=== PATIENT | male | born 1940 | race Caucasian/White ===

== ENCOUNTER 2024-04-18 14:16 | Outpatient (AMB) | payer MEDICARE, SELFPAY ==
--- NOTE | 2024-04-18 14:41 | MHC.PC.OV ---
Vital Signs 04/18/24 14:44 Height 5 ft 6 in Weight 176 lb BMI 28.4 BP 110/72 Blood Pressure Location Lt brachial Position Sitting Intake Visit Reasons: establish care Catheter Builder Required: No Accompanied by: Son Allergies No Known Allergies Allergy (Verified 04/18/24 15:05) Medication List - Last Reconciled 04/18/24 by Gregory Helms PA-C amlodipine 5 mg PO DAILY cetirizine (All Day Allergy (cetirizine)) 10 mg PO DAILY PRN lisinopril-hydrochlorothiazide 20-12.5 mg 1 tab PO DAILY nabumetone 500 mg PO BID pravastatin 80 mg PO BEDTIME Tobacco use date assessed: 04/18/24 Fall risk assessment: 1 Fall in past year Last assessed Fall Risk: 04/18/24 Dental Screening Dental Screen Date: 04/18/24 Did you have a dental visit in the last 12 months?: No Did you have a dental problem in the last 6 months where you did not have access to dental care?: No Was dental information given to patient?: Patient declined HPI establish care HPI Details Patient is an 83-year-old male here today for new patient visit. Patient has a past medical history significant for hypertension, hyperlipidemia. Previous PCP was at the [facility]. .. Concern--> he reports last 20 years having bilateral foot numbness. This has never been investigated. He does report walking on every day basis and reports at times his legs feel very heavy. Hyperlipidemia: Patient continues on statin therapy. Will continue to fasting lipid panel with goal LDL to be below 130 ... Hypertension: Blood pressure acceptable today in office. He continues with the use of lisinopril hydrochlorothiazide and amlodipine 5 mg. [facility] Surgical History No pertinent past surgical history Social History Housing: Apartment Alcohol intake: current Alcohol intake frequency: holidays/special occasions only Alcohol type: other Patient Tobacco Use Status: Never used Tobacco e-Cigarette/Vaping Use: Never Used Second Hand Smoke Exposure: No service: No Current occupational status: retired Cognitive needs: No Hearing needs: No Vision needs: Yes Questionnaire PHQ-9 Over the last 2 weeks, how often have you been bothered by any of the following problems? 1. Little interest or pleasure in doing things: not at all 2. Feeling down, depressed, or hopeless: not at all 3. Trouble falling or staying asleep, or sleeping too much: several days 4. Feeling tired or having little energy: several days 5. Poor appetite or overeating: not at all 6. Feeling bad about yourself - or that you are a failure or have let yourself or your family down: not at all 7. Trouble concentrating on things, such as reading the newspaper or watching television: not at all 8. Moving or speaking so slowly that other people could have noticed. Or the opposite - being so fidgety or restless that you have been moving around a lot more than usual: several days 9. Thoughts that you would be better off or of hurting yourself in some way: not at all Total score: 3 Depression Screening Interpretation: Negative Depression Screening Done: Yes 62722 - PHQ-9 Billing: Yes Source: Developed by Drs. Mamadou Adam, Agnes Devine, Antonino Soares and colleagues, with an educational yeni from [employer]. Thrive Questionnaire Date Thrive assessed: 04/18/24 I am a: Patient What is your living situation today?: I have a steady place to live Within the past 12 months, did the food you bought not last and you didn't have the money to get more?: Never true Within the past 12 months, did you worry whether your food would run out before you got money to buy more?: Never true Do you have trouble paying for medicines?: No Do you have trouble getting transportation to medical appointments?: No Do you have trouble paying your heating and electricity bill?: No Do you have trouble taking care of your child, family member or friend?: No Do you have trouble with day-to-day activities such as bathing, preparing meals, shopping, managing finances, etc.?: No Are you currently unemployed and looking for a job?: No Are you interested in more education?: No Please select the resources that you would like help with: None Currently or been in a relationship where the following occur: No concerns reported THRIVE Score: 0 AUDIT C Alcohol Use Questionnaire (AUDIT-C) 1. How often do you have a drink containing alcohol?: 2-3 times a week 2. How many drinks containing alcohol do you have on a typical day when you are drinking?: 1 or 2 3. How often do you have six or more drinks on one occasion?: Never Total Score: 3 EBONY-7 AMB Questionnaire EBONY-7 Date EBONY - 7 assessed: 04/18/24 Feeling nervous, anxious, or on edge: 0 = Not at all Not being able to stop or control worryin = Not at all Worrying too much about different things: 0 = Not at all Trouble relaxin = Not at all Being so restless that it is hard to sit still: 0 = Not at all Becoming easily annoyed or irritable: 0 = Not at all Feeling afraid as if something awful might happen: 0 = Not at all Total EBONY-7 score (0-4 normal; 5-9 mild; 10-14 moderate; 15-21 severe): 0 Source: Developed by Drs. Mamadou Adam, Agnes Devine, Antonino Soares and colleagues, with an educational yeni from [employer]. EBONY-7 Assessment Billing EBONY-7 Assessment Tool: EBONY-7 Assessment 90227 Review of Systems Const Denies headache(s) Eyes Denies loss of vision ENT Denies vertigo, Denies dizziness, Denies headache(s) and Denies sore throat Card Denies chest pain, Denies leg edema and Denies lightheadedness Resp Denies cough, Denies hemoptysis and Denies wheezing GI Denies abdominal pain, Denies melena, Denies constipation, Denies diarrhea and Denies vomiting Denies dysuria, Denies urinary frequency and Denies urinary urgency Musc Denies arthralgias, Denies joint swelling, Denies numbness and Denies tingling Neuro Denies Abnormal speech present, Denies behavioral changes, Denies vertigo, Denies dizziness, Denies headache(s), Denies loss of vision, Denies memory loss, Denies numbness and Denies tingling Psych Denies anxiety, Denies behavioral changes, Denies depression, Denies memory loss and Denies panic attacks Markell/Lymph Denies easy bleeding and Denies easy bruising Aller/Immun Denies wheezing Physical exam (Primary Care) Vital Signs: Last Vital Signs BP 110/72 04/18/24 14:44 BMI result Body Mass Index 28.4 Tobacco/Smoking Status: Tobacco use Status Tobacco use date assessed 04/18/24 04/18/24 14:52 Patient Tobacco Use Status Never used Tobacco 04/18/24 14:52 e-Cigarette/Vaping Use Never Used 04/18/24 14:52 PHQ-9: PHQ-9 Score PHQ-9: Total score 3 04/18/24 15:05 Depression Screening Interpretation: Negative Thrive Assessment: Date of Thrive Assessment Date Thrive assessed 04/18/24 04/18/24 14:43 Currently or been in a relationship where the following occur: No concerns reported Const General: healthy appearing, no acute distress, alert and awake Nutritional Appearance: well nourished Orientation/consciousness: oriented to person, oriented to place and oriented to time HENMT Ears: TM's normal bilaterally General nose exam: Normal nasal mucous membranes and turbinates present Eyes Conjunctivae: conjunctivae normal Sclerae: sclerae normal Pupils: Equal, round and reactive pupils present Neck Neck: Yes no lymphadenopathy and Yes no JVD Thyroid: Thyroid normal Carotids: no bruits Resp Effort & Inspection: normal respiratory effort and not tachypneic Auscultation: no crackles, no rales, no rhonchi and no wheezes Cardio Rate: regular rate Rhythm: regular rhythm Heart sounds: no murmurs and normal S1 and S2 GI Palpation (GI): Soft to palpation, nontender, no hepatomegaly and no splenomegaly Auscultation: normal bowel sounds Skin General skin exam: no rashes or lesions noted and dry skin Neuro General: oriented to person, oriented to place and oriented to time Cranial nerves: Yes Equal, round and reactive pupils present Speech: No Abnormal speech present Gait exam (Neuro): Normal gait present Motor exam (neuro): no tremor noted Extrem Right upper extremity: full ROM Left upper extremity: full ROM Right lower extremity: full ROM; no edema Left lower extremity: full ROM; no edema Psych Mental Status: mental status grossly normal Speech and movement: Normal speech and movement present Affect: normal affect Attitude: cooperative Thought process: Normal thought process present Coding Level of Care Code New Pt Level 4 (11214) Diagnoses Primary hypertension I10 Hypertension type: primary hypertension Mixed hyperlipidemia E78.2 Hyperlipidemia type: mixed hyperlipidemia Bilateral leg paresthesia R20.2 Additional Codes PHQ-9 - 53503 - PHQ-9 Billing: Yes ([id number]) EBONY-7 Assessment Billing - EBONY-7 Assessment Tool: EBONY-7 Assessment 77784 ([id number]) Assessment & Plan Assessment & Plan (1) HTN (hypertension): Code(s): I10 - Essential (primary) hypertension Category: Medical Qualifiers: Hypertension type: primary hypertension Qualified Code(s): I10 - Essential (primary) hypertension Plan: Patient's blood pressure acceptable today in office. Will continue his current dose of antihypertensive medication with goal blood pressure to remain below 140/90 (2) HLD (hyperlipidemia): Code(s): E78.5 - Hyperlipidemia, unspecified Category: Medical Qualifiers: Hyperlipidemia type: mixed hyperlipidemia Qualified Code(s): E78.2 - Mixed hyperlipidemia Plan: Patient continues on pravastatin 80 mg. Will continue follow the fasting lipid panel. Goal LDL to be below 130 (3) Bilateral leg paresthesia: Code(s): R20.2 - Paresthesia of skin Category: Medical Plan: Patient reporting bilateral foot numbness and paresthesias. Also does have some exertional symptoms of heaviness in his legs. Will start with the EMG testing to evaluate for neuropathy. Orders: Orders Lipid Panel 04/18/24 E78.5 - Hyperlipidemia, unspecified Prostate Specific Antigen Scr 04/18/24 I10 - Essential (primary) hypertension, Z12.5 - Encounter for screening for malignant neoplasm of prostate NE electromyogram (EMG) 04/18/24 R20.2 - Paresthesia of skin Complete Blood Count no Diff 04/18/24 I10 - Essential (primary) hypertension Comprehensive [place]. Panel Fast 04/18/24 I10 - Essential (primary) hypertension Microalbumin, Random (w Creat) 04/18/24 I10 - Essential (primary) hypertension
[2024-04-18 14:44] VITALS: BP 110/72; BMI 28.4
--- OUTSIDE RECORDS SUMMARY | 2024-04-18 16:18 | XMS_ITS | Clinical Summary ---
Author Organization [facility] [place] Address [address] [place] [address] Care Team Providers Care Human Capital Consultant Name Role Phone Grzegorz Javier MD Primary Care Provider [phone] Medical History Medical History Date Comments Reflux esophagitis DX:Reflux eso phagitis Hyperlipidemia DX:Hyperlipidemi a Hypertension DX:Hypertension Pill esophagitis DX:Pill esophag itis Family History Medical History Relation Name Comments Alzheimer's disease Brother Colon cancer Father Heart attack Mother Alzheimer's disease Sister Relation Name Status Comments Brother Father Mother Sister Social History Tobacco Use Types Packs/Day Years Used Date Smoking Tobacco: Never Smokeless Tobacco: Never Alcohol Use Standard Drinks/Week Comments Yes 0 (1 standard drink = 0.6 oz pur e alcohol) Sex and Gender Information Value Date Recorded Sex Assigned at Not on file Legal Sex Male 4:09 PM EST Gender Identity Not on file Sexual Orientation Not on file Obstetrics History Last Filed Vital Signs Vital Sign Reading Time Taken Comments Blood Pressure 116/64 04/24/2023 2:18 PM EDT Pulse 63 04/24/2023 2:18 PM EDT Temperature - - Respiratory Rate - - Oxygen Saturation - - Inhaled Oxygen Concentration - - Weight 82.7 kg (182 lb 4.8 oz) 04/24/2023 2:18 P M EDT Height 174 cm (5' 8.5 ) 04/24/2023 2:18 PM EDT Body Mass Index 27.32 04/24/2023 2:18 PM EDT Plan of Treatment Health Maintenance Due Date Last Done Comments DTaP,Tdap,and Td Vaccines (1 - Tdap) 1957 Pneumococcal Vaccine: 50+ Ye ars (1 of 1 - PCV) 1988 Zoster Vaccines (1 of 2) 1988 RSV Immunization Patients 60 + Years Old (1 - 1-dose 75+ series) 2013 Cholesterol Screening (Lipid Panel) 01/08/2022 Depression Screening 01/08/2022 Falls Risk Assessment 01/08/2022 Social Influencers of Health Screening 01/08/2022 Hypertension/CHF/CAD Annual BMP Blood Test 01/23/2022 COVID-19 Vaccine ( - 2023-2 5 season) 2023 Influenza Vaccine (#1) 2023 HIB Vaccines Aged Out No longer eligi ble based on patient's age to complete this topic HPV Vaccines Aged Out No longer eligi ble based on patient's age to complete this topic Hepatitis A Vaccines Aged Out No long er eligible based on patient's age to complete this topic Hepatitis B Vaccines Aged Out No long er eligible based on patient's age to complete this topic IPV Vaccines Aged Out No longer eligi ble based on patient's age to complete this topic MMR Vaccines Aged Out No longer eligi ble based on patient's age to complete this topic Meningococcal ACWY Vaccine Aged Out N o longer eligible based on patient's age to complete this topic Meningococcal B Vacine Aged Out No lo nger eligible based on patient's age to complete this topic RSV Immunization Patients Un hammad 20 months Aged Out No longer eligible b ased on patient's age to complete this topic Varicella Vaccines Aged Out No longer eligible based on patient's age to complete this topic Advance Directives Documents on File Type Date Recorded Patient Bulk Sausage Casing Tier Off Expl anation Health Care Decision (hx) 04/28/2018 AD CODY DIRECTIVE Health Care Decision (hx) 04/28/2018 AD CODY DIRECTIVE Care Teams Human Capital Consultant Relationship Specialty Start Date End Date Grzegorz Javier MD [address] [place] [phone] PCP - General 01/18/15
== END 2024-04-18 15:29 | disposition home or self-care (01) ==
PROVIDERS: PCP Physician Assistant; Visit Provider Physician Assistant
DX: I10 Essential (primary) hypertension (principal); E78.2 Mixed hyperlipidemia; R20.2 Paresthesia of skin

== ENCOUNTER → 2024-04-18 14:16 | Outpatient (BNVA) | payer MEDICARE, SELFPAY | PROVIDERS: PCP Physician Assistant; Visit Provider Physician Assistant | DX: I10 Essential (primary) hypertension (principal); E78.2 Mixed hyperlipidemia; R20.2 Paresthesia of skin | CPT/HCPCS: 96127; 99202 ==

== ENCOUNTER 2024-06-10 09:57 | Outpatient (REF) | payer MEDICARE, SELFPAY ==
[2024-06-10 10:59] LABS: Hematocrit 38.6 % (42.0-52.0); Hemoglobin 13.2 g/dl (14.0-18.0); Mean Corpuscular HGB Conc 34.2 g/dl (31.0-36.0); Mean Corpuscular Hemoglobin 30.3 pg (27.0-33.0); Mean Corpuscular Volume 88.5 fL (80.0-98.0); Platelet Count 161 X10*3/uL (160-400); Red Blood Count 4.36 X10*6/uL (4.60-5.80); Red Cell Distribution Width 12.8 % (11.0-16.0); White Blood Count 6.7 X10*3/uL (4.8-10.8)
--- OUTSIDE RECORDS SUMMARY | 2024-06-10 11:01 | XMS_ITS | Clinical Summary ---
Author Organization [facility] Address [address] [place] [address] Care Team Providers Care Sharepoint Consultant Name Role Phone Grzegorz Javier MD Primary Care Provider [phone] Medical History Medical History Date Comments Reflux [...] Vaccines (1 of 2) 1988 RSV Immunization Adult Patie nts (1 - 1-dose 75+ series) 2013 Cholesterol Screening (Lipid Panel) 01/08/2022 Depression Screening 01/08/2022 Falls Risk Assessment 01/08/2022 Social Influencers of Health Screening 01/08/2022 Hypertension/CHF/CAD Annual BMP Blood Test 01/23/2022 COVID-19 Vaccine ( - 2023-2 5 season) 2023 Influenza Vaccine (Season Ended) 2024 HIB Vaccines Aged Out No longer eligi [...] age to complete this topic Meningococcal B Vaccine Aged Out No l onger eligible based on patient's age to complete this topic RSV Immunization Patients Un hammad 20 months Aged Out No longer eligible b ased on patient's age to complete this topic Varicella Vaccines Aged Out No longer eligible based on patient's age to complete this topic Advance Directives Documents on File Type Date Recorded Patient Youth Counselor Expl anation Health Care Decision (hx) 04/28/2018 AD CODY DIRECTIVE Health Care Decision (hx) 04/28/2018 AD CODY DIRECTIVE Care Teams Sharepoint Consultant Relationship Specialty Start Date End Date Grzegorz Javier MD [address] [phone] PCP - General 01/18/15
[2024-06-10 11:54] LABS: Prostate Specific Antigen Scr 0.26 ng/mL (<0.05-4.0)
[2024-06-10 12:03] LABS: Alanine Aminotransferase 11 U/L (0-40); Albumin Level 3.9 g/dL (3.5-5.0); Alkaline Phosphatase 41 U/L (39-117); Anion Gap 13 (12-20); Aspartate Amino Transferase 14 U/L (5-37); Bilirubin Total 0.5 mg/dL (0.0-1.0); Blood Urea Nitrogen 24 mg/dL (9-16); Calcium 9.3 mg/dL (8.4-10.2); Carbon Dioxide 26 mmol/L (22-29); Chloride 109 mmol/L (96-108); Cholesterol 114 mg/dL (<200); Estimated Glomerular Filt Rate > 60; Glucose Fasting 104 mg/dL (60-99); HDL Cholesterol 44 mg/dL (>40); LDL Cholesterol Calculated 46 mg/dL (<100); Potassium 3.8 mmol/L (3.3-5.1); Sodium 144 mmol/L (135-145); Total Protein 6.4 g/dL (6.5-8.0); Triglycerides 120 mg/dL (<150)
[2024-06-10 12:15] LABS: Creatinine Urine 107.96 mg/dL; Microalbumin Urine < 5.0 mg/L
== END 2024-06-10 09:58 | disposition home or self-care (01) ==
LOC: HO.LAB 09:57
PROVIDERS: PCP Physician Assistant; Visit Provider Physician Assistant
DX: I10 Essential (primary) hypertension (principal); E78.5 Hyperlipidemia, unspecified; Z12.5 Encounter for screening for malignant neoplasm of prostate
CPT/HCPCS: 36415; 80053; 80061; 82043; 82570; 84153; 85027

== ENCOUNTER 2024-06-15 14:27 | Outpatient (AMB) | payer MEDICARE, SELFPAY ==
--- NOTE | 2024-06-15 14:34 | A.OFFPC_ITS ---
Vital Signs 06/15/24 14:50 Height 5 ft 6 in Weight 170 lb BMI 27.4 BP 110/60 Blood Pressure Location Lt brachial Position Sitting Pulse 65 Pulse Source Pulse Oximeter Temp 97.3 F Temp Source Temporal Artery Scan Pulse Oximetry (%) 95 Oxygen Delivery Method Room Air Intake Visit Reasons: Annual Exam Intake Note: Patient is here today for a physical. Associate Faculty Required: No Accompanied by: Son Allergies No Known Allergies Allergy (Verified 06/15/24 15:03) Medication List - Last Reconciled 06/15/24 by Gregory Helms PA-C amlodipine 5 mg PO DAILY cetirizine (All Day Allergy (cetirizine)) 10 mg PO DAILY PRN lisinopril-hydrochlorothiazide 20-12.5 mg 1 tab PO DAILY nabumetone 500 mg PO BID pantoprazole 40 mg PO DAILY pravastatin 80 mg PO BEDTIME spironolactone 25 mg PO DAILY Tobacco use date assessed: 04/18/24 Dental Screening Dental Screen Date: 04/18/24 HPI Annual Exam HPI Details Patient is an 83-year-old male here today for annual physical. Patient has a past medical history significant for hypertension, hyperlipidemia. .. Concern--> patient reports having right ear mild pain over the last 4 weeks. Did see the urgent care recently and was given a prednisone taper though did not reduce any of his pain. He otherwise denies any headaches, loss of hearing or fevers. he reports last 20 years having bilateral foot numbness. This has never been investigated. He does report walking on every day basis and reports at times his legs feel very heavy. PLAN: Will send for bilateral lower extremity ultrasound to evaluate for vascular etiology. We did discuss EMG testing though has declined testing. Hyperlipidemia: Patient continues on statin therapy. Will continue to fasting lipid panel with goal LDL to be below 130 ... Hypertension: Blood pressure acceptable today in office. He continues with the use of lisinopril hydrochlorothiazide and amlodipine 5 mg. Vaccines: Up-to-date with COVID vaccine, considering PCV .. Labs- reviewed labs with patient and noted a slightly elevated fasting blood sugar at 104 Laboratory Tests 06/10/24 10:28 RBC 4.36 L Hgb 13.2 L Creatinine 1.13 Fasting Glucose 104 H LDL Cholesterol, C alc 46 PSA Screen 0.26 [facility] Surgical History No pertinent past surgical history Social History (Updated 06/15/24 @ 15:07 by Gregory Helms PA-C) Housing: Apartment Alcohol intake: current Alcohol intake frequency: holidays/special occasions only Alcohol type: other Patient Tobacco Use Status: Never used Tobacco e-Cigarette/Vaping Use: Never Used Second Hand Smoke Exposure: No service: No Current occupational status: retired Cognitive needs: No Hearing needs: No Vision needs: Yes Questionnaire Thrive Questionnaire Date Thrive assessed: 04/18/24 I am a: Patient What is your living situation today?: I have a steady place to live Within the past 12 months, did the food you bought not last and you didn't have the money to get more?: Never true Within the past 12 months, did you worry whether your food would run out before you got money to buy more?: Never true Do you have trouble paying for medicines?: No Do you have trouble getting transportation to medical appointments?: No Do you have trouble paying your heating and electricity bill?: No Do you have trouble taking care of your child, family member or friend?: No Do you have trouble with day-to-day activities such as bathing, preparing meals, shopping, managing finances, etc.?: No Are you currently unemployed and looking for a job?: No Are you interested in more education?: No Please select the resources that you would like help with: None Currently or been in a relationship where the following occur: No concerns reported THRIVE Score: 0 EBONY-7 AMB Questionnaire EBONY-7 Date EBONY - 7 assessed: 04/18/24 Source: Developed by Drs. Mamadou Aadm, Agnes Devine, Antonino Soares and colleagues, with an educational yeni from [employer]. Review of Systems Const Denies body aches, Denies chills, Denies excessive sweating, Denies fatigue, Denies fever(s) and Denies headache(s) Eyes Denies blurry vision ENT Denies dysphagia, Denies vertigo, Denies dizziness, Denies headache(s), Denies hearing loss and Denies tinnitus Card Denies chest pain, Denies chest pain with activity, Denies syncope, Denies irregular heart rhythm and Denies dyspnea Resp Denies chest congestion, Denies cough, Denies hemoptysis, Denies dyspnea and Denies wheezing GI Denies abdominal pain, Denies melena, Denies hematochezia, Denies coffee ground emesis, Denies dysphagia, Denies diarrhea, Denies nausea and Denies vomiting Denies difficulty urinating, Denies dysuria, Denies urinary frequency, Denies urinary hesitancy and Denies urinary urgency Musc Denies arthralgias, Denies limited range of motion, Denies muscle cramps and Denies muscle weakness Skin/Breast Denies rash and Denies skin ulcer Neuro Denies Abnormal speech present, Denies confusion, Denies vertigo, Denies dizziness, Denies syncope, Denies headache(s), Denies memory loss and Denies seizure-like activity Psych Denies anxiety, Denies confusion, Denies depression, Denies memory loss, Denies panic attacks and Denies paranoia Endo Denies excessive sweating, Denies fatigue, Denies flushing, Denies polydipsia and Denies polyuria Aller/Immun Denies wheezing Physical exam (Primary Care) Vital Signs: Last Vital Signs Temp 97.3 F 06/15/24 14:50 Pulse 65 06/15/24 14:50 BP 110/60 06/15/24 14:50 Pulse Ox 95 06/15/24 14:50 Oxygen Delivery Method Room Air 06/15/24 14:50 BMI result Body Mass Index 27.4 Tobacco/Smoking Status: Tobacco use Status Tobacco use date assessed 04/18/24 06/15/24 14:34 Patient Tobacco Use Status Never used Tobacco 06/15/24 15:07 e-Cigarette/Vaping Use Never Used 06/15/24 15:07 Thrive Assessment: Date of Thrive Assessment Date Thrive assessed 04/18/24 06/15/24 14:34 Currently or been in a relationship where the following occur: No concerns reported Const General: cooperative, comfortable, no acute distress, alert and awake; No confusion Orientation/consciousness: oriented to person, oriented to place, patient oriented x3 and No confusion HENMT Other: RIGHT EAR: EXTERNAL CANAL NORMAL, RIGHT TYMPANIC MEMBRANE WITH SOME MILD BULGING AND OPAQUENESS NOTED. Head: Yes normocephalic Ears: external ears normal, TM's abnormal bilaterally and TM abnormal Face and sinus: No sinus tenderness Mouth: Normal oral and palatal mucosa present and tongue normal Teeth and gingiva: dentition normal and gingiva normal Throat: Yes posterior oropharynx normal, Yes tonsils normal and Yes uvula midl ine Eyes Conjunctivae: conjunctivae normal Sclerae: sclerae normal Pupils: Equal, round and reactive pupils present EOM: EOMs intact bilaterally Direct Ophthalmoscopy: No no photophobia Neck Neck: Yes no lymphadenopathy, No tender and Yes no JVD Thyroid: Thyroid normal Carotids: no bruits Chest Chest palpation & inspection: no tenderness Resp Effort & Inspection: normal respiratory effort, no audible wheezes, not labored and no stridor Auscultation: no crackles, no rales, no rhonchi and no wheezes Cardio Jugular venous distension: no JVD Rate: regular rate, not bradycardic and not tachycardic Rhythm: regular rhythm Bruits: no carotid bruits Peripheral pulses: Peripheral pulses 2+ throughout GI Inspection: Yes normal to inspection, No abdominal wall ecchymosis and No visible herniation Palpation (GI): Soft to palpation, nontender, no guarding, not rigid and No hepatosplenomegaly present Auscultation: normoactive bowel sounds General: Yes no CVA tenderness Back/Spine/Pelvis Back: no CVA tenderness and No back tenderness Cervical Spine: cervical ROM normal Thoracic/Lumbar Spine: thoracic and lumbar spine normal to inspection, straight leg raise negative bilaterally, No thoraco-lumbar ROM limited and No lumbar spinal tenderness Skin Lesions: no lesions Rashes: no rashes Wounds: no wounds Neuro General: oriented to person, oriented to place, patient oriented x3, CN's II-XI intact bilaterally and No confusion Cranial nerves: Yes Equal, round and reactive pupils present and Yes Normal accommodation reflex present Cognition (Neuro): normal cognition Speech: No Abnormal speech present Gait exam (Neuro): Normal gait present Motor exam (neuro): 5/5 motor strength present throughout Extrem Right upper extremity: full ROM; no cyanosis Left upper extremity: full ROM; no cyanosis Right lower extremity: no edema Left lower extremity: no edema Psych Appearance: grossly normal Mental Status: mental status grossly normal Affect: normal affect Attitude: cooperative Thought process: Normal thought process present Immunizations pneumoc 20-sandra conj-dip cr(PF) 0.5 mL IM syringe Performing Provider: Gregory Helms PA-C [facility] Administered by: RICHI Abarca on 06/15/24 15:40 Dose Route Admin Location Dispensed Lot Number Expiration Date [facility] Embroidery Finisher 0.5 mL IM Left Deltoid 0.5 mL [id number] 04/09/25 5445-6625-08 [employer]PFIZER VIS Given Date VIS Provided VIS Publication Date 06/15/24 Single Vaccine 22 Eligibility Eligibility Date Funding Source Not [facility] Eligible 06/15/24 Private Coding Level of Care Code Est Pt Prev Care >65y(72536) Diagnoses Annual physical exam Z00.00 Bilateral leg cramps R25.2 Acute mucoid otitis media of right ear H65.191 Otitis media type: mucoid Chronicity: acute Primary hypertension I10 Hypertension type: primary hypertension Mixed hyperlipidemia E78.2 Hyperlipidemia type: mixed hyperlipidemia Assessment & Plan Assessment & Plan (1) Annual physical exam: Code(s): Z00.00 - Encounter for general adult medical examination without abnormal findings Category: Medical Plan: As per HPI (2) Bilateral leg cramps: Code(s): R25.2 - Cramp and spasm Category: Medical Plan: Patient reporting any years bilateral lower extremity heaviness and aching particularly upon walking. He does report having bilateral toe numbness for many years as well. Etiology here seems to be neuropathy though would like to get ultrasound evaluate for vascular concerned in his lower extremity due to the heaviness feeling in his legs. (3) Right otitis media: Code(s): H66.91 - Otitis media, unspecified, right ear Category: Medical Qualifiers: Otitis media type: mucoid Chronicity: acute Qualified Code(s): H65.191 - Other acute nonsuppurative otitis media, right ear Plan: Physical exam appears to have somewhat of a opaque right tympanic membrane. Already treated with prednisone though was not effective. Will supply patient with antibiotics for possible otitis media. (4) HTN (hypertension): Code(s): I10 - Essential (primary) hypertension Category: Medical Qualifiers: Hypertension type: primary hypertension Qualified Code(s): I10 - Essential (primary) hypertension Plan: Patient's blood pressure acceptable today in office. Will continue his current dose of antihypertensive medication with goal blood pressure to remain below 140/90 (5) HLD (hyperlipidemia): Code(s): E78.5 - Hyperlipidemia, unspecified Category: Medical Qualifiers: Hyperlipidemia type: mixed hyperlipidemia Qualified Code(s): E78.2 - Mixed hyperlipidemia Plan: Patient continues on pravastatin 80 mg. Will continue follow the fasting lipid panel. Goal LDL to be below 130 Orders: Orders Lipid Panel 06/15/24 E78.2 - Mixed hyperlipidemia Comprehensive Conception. Panel Fast 06/15/24 I10 - Essential (primary) hypertension Complete Blood Count no Diff 06/15/24 I10 - Essential (primary) hypertension US venous duplex LE BI 06/15/24 R25.2 - Cramp and spasm Pneumococcal 20 Immunization 06/15/24 Z23 - Encounter for immunization Medications: New amoxicillin 500 mg PO Q8H 21 tabs 0RF 7 days H66.91 - Otitis media, unspecified, right ear pantoprazole 40 mg PO DAILY 90 tabs 1RF 90 days K21.00 - Gastro-esophageal reflux disease with esophagitis, without bleeding Changed From amlodipine 5 mg PO DAILY I10 - Essential (primary) hypertension To amlodipine 5 mg PO DAILY 90 tabs 1RF 90 days I10 - Essential (primary) hypertension From pravastatin 80 mg PO BEDTIME E78.2 - Mixed hyperlipidemia To pravastatin 80 mg PO BEDTIME 90 tabs 1RF 90 days E78.2 - Mixed hyperlipidemia From lisinopril-hydrochlorothiazide 20-12.5 mg 1 tab PO DAILY I10 - Essential (primary) hypertension To lisinopril-hydrochlorothiazide 20-12.5 mg 1 tab PO DAILY 90 tabs 1RF 90 days I10 - Essential (primary) hypertension From nabumetone 500 mg PO BID R25.2 - Cramp and spasm To nabumetone 500 mg PO BID PRN 60 tabs 1RF pain (scale score 7-10) 30 days R25.2 - Cramp and spasm Patient Instructions: Goal: Blood pressure to remain below 140/90 Barrier: Adherence to physical activity and healthy eating habits
[2024-06-15 14:50] VITALS: BP 110/60; PULSE 65; TEMP 36.3; O2SAT 95; BMI 27.4
--- OUTSIDE RECORDS SUMMARY | 2024-06-15 15:39 | XMS_ITS | Clinical Summary ---
Author Organization [facility] ity Address [address] [place] [address] Care Team Providers Care Wet Process Assistant Head Miller Name Role Phone Grzegorz Javier MD Primary Care Provider [phone] Medical History Medical History Date Comments Reflux [...] Documents on File Type Date Recorded Patient Bank Credit Card Collection Clerk Expl anation Health Care Decision (hx) 04/28/2018 AD CODY DIRECTIVE Health Care Decision (hx) 04/28/2018 AD CODY DIRECTIVE Care Teams Wet Process Assistant Head Miller Relationship Specialty Start Date End Date Grzegorz Javier MD [address] [id number] PCP - General 01/18/15
== END 2024-06-15 15:36 | disposition home or self-care (01) ==
LOC: HO.HMCH 14:27
PROVIDERS: PCP Physician Assistant; Visit Provider Physician Assistant
DX: Z00.00 Encounter for general adult medical examination without abnormal findings (principal); R25.2 Cramp and spasm; H65.191 Other acute nonsuppurative otitis media, right ear; I10 Essential (primary) hypertension; E78.2 Mixed hyperlipidemia

== ENCOUNTER → 2024-06-15 14:27 | Outpatient (BNVA) | payer MEDICARE, SELFPAY | PROVIDERS: PCP Physician Assistant; Visit Provider Physician Assistant | DX: Z00.00 Encounter for general adult medical examination without abnormal findings (principal); Z23 Encounter for immunization; R25.2 Cramp and spasm; H65.191 Other acute nonsuppurative otitis media, right ear; I10 Essential (primary) hypertension; E78.5 Hyperlipidemia, unspecified; Z79.899 Other long term (current) drug therapy | CPT/HCPCS: 90471; 90677; 99397 ==

== ENCOUNTER 2024-07-15 08:25 | Outpatient (REF) | payer MEDICARE, SELFPAY ==
--- NOTE | ~2024-07-15 | US_ITS ---
EXAMINATION: COLOR-FLOW DUPLEX IMAGING OF THE BILATERAL LOWER EXTREMITY ARTERIAL SYSTEM. CLINICAL INFORMATION: Cramps and spasms of the lower extremities. Foot numbness. FINDINGS: Atheromatous Plaque: Mild atheromatous plaque identified bilaterally. RIGHT FEMORAL RUNOFF VELOCITIES: The right common femoral artery measures 144 cm/s and triphasic. The right profunda femoral artery is 97 cm/s and is triphasic. The right proximal superficial femoral artery measures 101 cm/s and triphasic. The right mid superficial femoral artery is 101 cm/s and triphasic. The right distal right superficial femoral artery measures 102 cm/s and is triphasic. The right popliteal velocity measures 90 cm/s and is triphasic. The right posterior tibial artery velocity measures 97 cm/s and is triphasic. The right anterior tibial artery measures 59 cm/s and is biphasic. The right peroneal artery was not well seen. The right dorsalis pedis artery demonstrated flow reversal, velocity of 27 cm/s with monophasic waveform. LEFT FEMORAL RUNOFF VELOCITIES: The left common femoral artery measures 110 cm/s and triphasic. The left profunda femoral artery is 57 cm/s and is biphasic. The left proximal superficial femoral artery measures 85 cm/s and triphasic. The left mid superficial femoral artery is 105 cm/s and triphasic. The left distal right superficial femoral artery measures 107 cm/s and is triphasic. The left popliteal velocity measures 78 cm/s and is triphasic. The left posterior tibial artery velocity measures 141 cm/s and is triphasic. The left anterior tibial artery velocity measures 67 cm/s and is triphasic. The left peroneal artery was not well seen. The left dorsalis pedis artery velocity measured 35 cm/s, and is triphasic. US/US arterial duplex LE BI IMPRESSION: 1. Scattered mild to moderate atherosclerotic disease is present. 2. There is flow reversal in the RIGHT dorsalis pedis artery with monophasic waveforms. Findings may indicate tibial level stenosis or occlusion of the RIGHT lower extremity arteries. The peroneal artery was not well seen. There are biphasic waveforms in the RIGHT anterior tibial artery. 3. No definite stenosis or occlusion of the LEFT lower extremity arteries by velocity and waveform criteria. Electronically signed by: Gigi Oshea MD 07/15/2024 10:22 AM EDT
--- OUTSIDE RECORDS SUMMARY | 2024-07-15 08:33 | XMS_ITS | Clinical Summary ---
Author Organization [facility] ity Address [address] [place] [address] Care Team Providers Care Psychological Assistant Name Role Phone Grzegorz Javier MD Primary Care Provider [phone] Medical History Medical History Date Comments Reflux [...] Documents on File Type Date Recorded Patient Thermal Engineer Expl anation Health Care Decision (hx) 04/28/2018 AD CODY DIRECTIVE Health Care Decision (hx) 04/28/2018 AD CODY DIRECTIVE Care Teams Psychological Assistant Relationship Specialty Start Date End Date Grzegorz Javier MD [address] [id number] PCP - General 01/18/15
== END 2024-07-15 08:26 | disposition home or self-care (01) ==
LOC: HO.US 08:25
PROVIDERS: PCP Physician Assistant; Visit Provider Physician Assistant
DX: R25.2 Cramp and spasm (principal); R20.0 Anesthesia of skin; I70.202 Unspecified atherosclerosis of native arteries of extremities, left leg
CPT/HCPCS: 93925

== ENCOUNTER → 2024-07-15 08:27 | Outpatient (BNV) | payer MEDICARE, SELFPAY | PROVIDERS: PCP Physician Assistant; Visit Provider Radiology Diagnostic Radiology | DX: I70.203 Unspecified atherosclerosis of native arteries of extremities, bilateral legs (principal) | CPT/HCPCS: 93925 ==

== ENCOUNTER 2024-09-06 10:18 | Outpatient (AMB) | payer MEDICARE, SELFPAY ==
--- NOTE | 2024-09-06 10:23 | A.OFFVIS_ITS ---
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 Pt states bilateral LE cramping w/ ambulation after 15mins for the past year. Bilateral LE are equal and bilateral foot numbness. 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 The symptoms have been present for over a year, characterized by an aching sensation in both legs after walking short distances, typically around one to two blocks. The ache is bilateral, affecting the knees and extending to the calves, and is relieved by rest. The patient has a history of smoking from age 16 to 28 but has since quit. He denies any history of diabetes. He reports chronic numbness in his toes for approximately 20 years and experiences lower back pain, which is alleviated by sitting. The patient is currently on pravastatin for cholesterol management. He now presents to us for vascular evaluation with noninvasive testing. [facility] Surgical History No pertinent past surgical history Social History Housing: Apartment Alcohol intake: current Alcohol intake frequency: holidays/special occasions only Alcohol type: other Patient Tobacco Use Status: Never used Tobacco e-Cigarette/Vaping Use: Never Used Second Hand Smoke Exposure: No service: No Current occupational status: retired Cognitive needs: No Hearing needs: No Vision needs: Yes Review of Systems Const All systems reviewed & are unremarkable except as noted in HPI and below Reports no additional complaints ENT Reports Normal hearing present Card Denies chest pain, Denies chest pain at rest, Denies chest pain with activity and Denies pedal edema Resp Denies cough GI Denies abdominal pain Musc Denies abnormal gait, Denies muscle cramps and Denies radiating pain into limb Skin/Breast Denies skin ulcer and Denies wounds Neuro Reports Normal hearing present and Denies abnormal gait Psych Reports no additional complaints Physical Exam Vital Signs: BMI result Body Mass Index 27.4 Const General: cooperative, healthy appearing and comfortable Orientation/consciousness: oriented to person, oriented to place and oriented to time HEENT Head: Yes normal to inspection Neck Neck: Yes normal visual inspection Carotids: no bruits Chest Chest palpation & inspection: normal inspection of the chest Resp Effort & Inspection: normal respiratory effort and able to speak in complete sentences Auscultation: clear to auscultation bilaterally, no crackles, no rales, no rhonchi and no wheezes Cardio Other: Left leg palpable posterior tibial, right side faint dorsalis pedis Rate: regular rate Rhythm: regular rhythm Heart sounds: S1 normal heart sound present and S2 normal heart sound present Bruits: no carotid bruits Peripheral pulses: Peripheral pulses 2+ throughout GI Inspection: Yes normal to inspection Skin Wounds: no wounds Hair: normal Neuro General: oriented to person, oriented to place and oriented to time Cranial nerves: Yes CN's II-XII intact bilaterally and Yes Normal hearing present Cognition (Neuro): normal cognition Motor exam (neuro): 5/5 motor strength present throughout Extrem Other: venous exam: No significant superficial varicosities or spider telangiectasias, minimal edema General: No clubbing, No cyanosis and No edema Psych Appearance: grossly normal Mental Status: mental status grossly normal Speech and movement: Normal speech and movement present Results Reviewed Results Reviewed: Noninvasive arterial testing dated 07/15/2024 demonstrates right inflow disease left side within normal limits. Written report and images were reviewed. Assessment & Plan Assessment & Plan (1) PAD (peripheral artery disease): Code(s): I73.9 - Peripheral vascular disease, unspecified Category: Medical Plan: In short patient has stable claudication. I did review the pathophysiology of peripheral vascular disease with the patient. In addition we did discuss routine conservative measures including a healthy diet and the importance of exercise and ambulation. We did discuss risk factor modification. In addition I have requested that he had a baby aspirin to his daily regimen. The patient will continue to to follow-up with surveillance follow-up in approximately 6 months. Thank you for allowing us to participate in this patient's care. If there are any questions or concerns please do not hesitate to contact us. Orders: Orders US arterial duplex LE BI 6 Months I73.9 - Peripheral vascular disease, unspecified Coding Level of Care Code New Pt Level 4 (74631) Complex EM visit Add On G2211 Diagnoses PAD (peripheral artery disease) I73.9
[2024-09-06 10:25] VITALS: BMI 27.4
--- OUTSIDE RECORDS SUMMARY | 2024-09-06 11:11 | XMS_ITS | Clinical Summary ---
Author Organization [facility] ity Address [address] [place] [address] Care Team Providers Care Photogrammetric Tech Name Role Phone Grzegorz Javier MD Primary Care Provider [phone] Medical History Medical History Date Comments Reflux [...] series) 2013 Cholesterol Screening (Lipid Panel) 01/08/2022 Falls Risk Assessment 01/08/2022 Social Influencers of Health Screening 01/08/2022 Hypertension/CHF/CAD Annual BMP Blood Test 01/23/2022 COVID-19 Vaccine (1 - 2023-2 5 season) 2023 Depression Screening 02/10/2024 Influenza Vaccine (#1) 2024 HIB Vaccines Aged Out No longer [...] Documents on File Type Date Recorded Patient Supersonic Engineer Expl anation Health Care Decision (hx) 04/28/2018 AD CODY DIRECTIVE Health Care Decision (hx) 04/28/2018 AD CODY DIRECTIVE Care Teams Photogrammetric Tech Relationship Specialty Start Date End Date Grzegorz Javier MD [address] [id number] PCP - General 01/18/15
== END 2024-09-06 10:54 | disposition home or self-care (01) ==
LOC: HO.HVS 10:19
PROVIDERS: PCP Physician Assistant; Visit Provider Surgery Vascular Surgery
DX: I73.9 Peripheral vascular disease, unspecified (principal)
CPT/HCPCS: 99204; G2211

== ENCOUNTER → 2024-09-06 10:18 | Outpatient (BNVA) | payer MEDICARE, SELFPAY | PROVIDERS: PCP Physician Assistant; Visit Provider Surgery Vascular Surgery | DX: I73.9 Peripheral vascular disease, unspecified (principal); M54.50 Low back pain, unspecified; R20.2 Paresthesia of skin | CPT/HCPCS: 99202 ==

== ENCOUNTER 2024-12-12 09:47 | Outpatient (AMB) | payer MEDICARE, SELFPAY ==
--- OUTSIDE RECORDS SUMMARY | 2023-07-15 03:30 | XMS_ITS ---
Author Organization [facility], [place] Address [address] [facility] [address] [place] [address] Care Team Providers Care Associate Director Of Sales Name Role Phone Migration, Provider Unavailable Unavailable REASON FOR VISIT Follow-up Appt Encounters Encounter Location Date Provider Diagnosis [facility], [address] [place] [phone] 07/15/2023 Provider Migration Plan Of Treatment No Information Progress Notes * MAXIMINO BRYSON GDOB:[birth year] (84 yo M)Acc No.[id number]:07/15/2023 Progress Notes Patient: MAXIMINO SHERMAN Provider: Susu Sepulveda :1940 A ge:82 Y S ex:Male Date:07/15/2023 Address:[address] [id number] Subjective: * Chief Complaints: * F ollow-up Appt * Ocular Surgical History: Objective: Vision Examination: * Electronic signature of Prov ider Migration on 12/12/2024 at 11:18 AM EST Sign off status: Pending * Provider: Susu felix Migration Date: 0 07/15/2023 Generated for Demi mcnally/Pipe/Katesmitting on: 1 02/12/2024 11:18 AM EST
--- OUTSIDE RECORDS SUMMARY | 2023-11-16 04:00 | XMS_ITS ---
Author Organization [facility], [place] Address [address] [facility] [address] [place] [address] Care Team Providers Care Audio Installer Name Role Phone Migration, Provider Unavailable Unavailable REASON FOR VISIT Follow-up Appt Encounters Encounter Location Date Provider Diagnosis [facility], [address] [place] [phone] 11/16/2023 Provider Migration Plan Of Treatment No Information Progress Notes * MAXIMINO BRYSON GDOB:[birth year] (84 yo M)Acc No.[id number]:11/16/2023 Progress Notes Patient: MAXIMINO SHERMAN Provider: Susu Sepulveda :1940 A ge:83 Y S ex:Male Date:11/16/2023 Address:[address] [facility] Subjective: * Chief Complaints: * F ollow-up Appt * Ocular Surgical History: Objective: Vision Examination: * Electronic signature of Prov ider Migration on 12/12/2024 at 11:18 AM EST Sign off status: Pending * Provider: Susu felix Migration Date: Generated for Demi mcnally/Pipe/Katesmitting on: 02/12/2024 11:18 AM EST
--- OUTSIDE RECORDS SUMMARY | 2024-02-22 05:15 | XMS_ITS ---
Author Organization [facility], [place] Address [address] [facility] [address] [place] [address] Care Team Providers Care Prosthetic Makeup Designer Name Role Phone Claudy Titus Unavailable [phone] REASON FOR VISIT Sick Visit Encounters Encounter Location Date Provider Diagnosis [facility]ly [facility], [address] [place] [phone] 02/22/2024 Claudy Titus Plan Of Treatment No Information Progress Notes * MAXIMINO BRYSON GDOB:[birth year] (84 yo M)Acc No.[id number]:02/22/2024 Progress Notes Patient: Daniel CastilloCHANDRAKANTNOEMAXIMINO Nelson Elle Provider: Thelma KNOX :1940 A ge:83 Y S ex:Male Date:02/22/2024 Address:[address] [id number] Subjective: * Chief Complaints: * S ick Visit * Ocular Surgical History: Objective: Vision Examination: * Electronic signature of Lefty Titus PA-C on 12/12/2024 at 11:18 AM EST Sign off status: Pending * Provider: Thelma KNOX Date: 0 02/22/2024 Generated for Demi mcnally/Pipe/eTransmitting on: 02/12/2024 11:18 AM EST
[2024-12-12 09:58] VITALS: BP 119/76; PULSE 91; TEMP 36.3; O2SAT 96; BMI 28.6
--- NOTE | 2024-12-12 09:58 | A.OFFPC_ITS ---
Vital Signs 12/12/24 09:58 Height 5 ft 6 in Weight 177 lb 4 oz BMI 28.6 BP 119/76 Blood Pressure Location Lt brachial Position Sitting Pulse 91 Pulse Source Pulse Oximeter Temp 97.3 F Temp Source Temporal Artery Scan Pulse Oximetry (%) 96 Oxygen Delivery Method Room Air Intake Visit Reasons: f/u HTN Intake Note: Patient is here today for a physical. 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 Accompanied by: Son Allergies No Known Allergies Allergy (Verified 12/12/24 10:33) Medication List - Last Reconciled 12/12/24 by Gregory Helms PA-C amlodipine 5 mg PO DAILY 90 days aspirin 81 mg PO DAILY cetirizine (All Day Allergy (cetirizine)) 10 mg PO DAILY PRN lisinopril-hydrochlorothiazide 20-12.5 mg 1 tab PO DAILY 90 days nabumetone 500 mg PO BID PRN 30 days pantoprazole 40 mg PO DAILY 90 days pravastatin 80 mg PO BEDTIME 90 days spironolactone 25 mg PO DAILY 90 days Tobacco use date assessed: 12/12/24 Fall risk assessment: No Falls in past year Dental Screening Dental Screen Date: 12/12/24 Did you have a dental visit in the last 12 months?: No Did you have a dental problem in the last 6 months where you did not have access to dental care?: No Was dental information given to patient?: No HPI f/u HTN HPI Details Patient is an 84-year-old male here today for follow-up visit. Patient has a past medical history significant for hypertension, hyperlipidemia. .. Peripheral arterial disease: He has a history of peripheral artery disease, diagnosed via ultrasound, which causes his legs to feel heavy and results in a lurching gait. This has been stable for many years, but his walking has become more problematic recently, as he needs to sit and rest for 20 minutes after walking three blocks. He continues on a daily baby aspirin .. Hyperlipidemia: Patient continues on statin therapy. Will continue to fasting lipid panel with goal LDL to be below 100 ... Hypertension: Blood pressure acceptable today in office. He continues with the use of lisinopril hydrochlorothiazide and amlodipine 5 mg. Vaccines: Up-to-date with COVID vaccine, considering PCV, amount at declines flu vaccine today .. Labs- reviewed labs with patient and noted a slightly elevated fasting blood sugar at 104 Laboratory Tests 06/10/24 10:28 RBC 4.36 L Creatinine 1.13 LDL Cholesterol, C alc 46 PSA Screen 0.26 PFSH Surgical History No pertinent past surgical history Social History Housing: Apartment Alcohol intake: current Alcohol intake frequency: holidays/special occasions only Alcohol type: other Patient Tobacco Use Status: Never used Tobacco e-Cigarette/Vaping Use: Never Used Second Hand Smoke Exposure: No service: No Current occupational status: retired Cognitive needs: No Hearing needs: No Vision needs: Yes Questionnaire PHQ-9 Over the last 2 weeks, how often have you been bothered by any of the following problems? 1. Little interest or pleasure in doing things: not at all 2. Feeling down, depressed, or hopeless: not at all 3. Trouble falling or staying asleep, or sleeping too much: several days 4. Feeling tired or having little energy: several days 5. Poor appetite or overeating: not at all 6. Feeling bad about yourself - or that you are a failure or have let yourself or your family down: not at all 7. Trouble concentrating on things, such as reading the newspaper or watching television: not at all 8. Moving or speaking so slowly that other people could have noticed. Or the opposite - being so fidgety or restless that you have been moving around a lot more than usual: several days 9. Thoughts that you would be better off or of hurting yourself in some way: not at all Total score: 3 Depression Screening Interpretation: Negative Depression Screening Done: Yes 99561 - PHQ-9 Billing: Yes Source: Developed by Drs. Mamadou Adam, Agnes Devine, Antonino Soares and colleagues, with an educational yeni from [employer]. Thrive Questionnaire Date Thrive assessed: 12/12/24 I am a: Patient What is your living situation today?: I have a steady place to live Within the past 12 months, did the food you bought not last and you didn't have the money to get more?: Never true Within the past 12 months, did you worry whether your food would run out before you got money to buy more?: Never true Do you have trouble paying for medicines?: No Do you have trouble getting transportation to medical appointments?: No Do you have trouble paying your heating and electricity bill?: No Do you have trouble taking care of your child, family member or friend?: No Do you have trouble with day-to-day activities such as bathing, preparing meals, shopping, managing finances, etc.?: No Are you currently unemployed and looking for a job?: No Are you interested in more education?: No Please select the resources that you would like help with: None Currently or been in a relationship where the following occur: No concerns reported THRIVE Score: 0 AUDIT C Alcohol Use Questionnaire (AUDIT-C) 1. How often do you have a drink containing alcohol?: 2-3 times a week 2. How many drinks containing alcohol do you have on a typical day when you are drinking?: 1 or 2 3. How often do you have six or more drinks on one occasion?: Never Total Score: 3 EBONY-7 AMB Questionnaire EBONY-7 Date EBONY - 7 assessed: 12/12/24 Feeling nervous, anxious, or on edge: 0 = Not at all Not being able to stop or control worryin = Not at all Worrying too much about different things: 0 = Not at all Trouble relaxin = Not at all Being so restless that it is hard to sit still: 0 = Not at all Becoming easily annoyed or irritable: 0 = Not at all Feeling afraid as if something awful might happen: 0 = Not at all Total EBONY-7 score (0-4 normal; 5-9 mild; 10-14 moderate; 15-21 severe): 0 Source: Developed by Drs. Mamadou Adam, Agnes Devine, Antonino Soares and colleagues, with an educational yeni from [employer]. EBONY-7 Assessment Billing EBONY-7 Assessment Tool: EBONY-7 Assessment 86441 Review of Systems Const Denies headache(s) Eyes Denies loss of vision ENT Denies vertigo, Denies dizziness, Denies headache(s) and Denies sore throat Card Denies chest pain, Denies leg edema and Denies lightheadedness Resp Denies cough, Denies hemoptysis and Denies wheezing GI Denies abdominal pain, Denies melena, Denies constipation, Denies diarrhea and Denies vomiting Denies dysuria, Denies urinary frequency and Denies urinary urgency Musc Denies arthralgias, Denies joint swelling, Denies numbness and Denies tingling Neuro Denies Abnormal speech present, Denies behavioral changes, Denies vertigo, Denies dizziness, Denies headache(s), Denies loss of vision, Denies memory loss, Denies numbness and Denies tingling Psych Denies anxiety, Denies behavioral changes, Denies depression, Denies memory loss and Denies panic attacks Markell/Lymph Denies easy bleeding and Denies easy bruising Aller/Immun Denies wheezing Physical exam (Primary Care) Vital Signs: Last Vital Signs Temp 97.3 F 12/12/24 09:58 Pulse 91 12/12/24 09:58 BP 119/76 12/12/24 09:58 Pulse Ox 96 12/12/24 09:58 Oxygen Delivery Method Room Air 12/12/24 09:58 BMI result Body Mass Index 28.6 Tobacco/Smoking Status: Tobacco use Status Tobacco use date assessed 12/12/24 12/12/24 10:00 Patient Tobacco Use Status Never used Tobacco 12/12/24 10:00 e-Cigarette/Vaping Use Never Used 12/12/24 10:00 PHQ-9: PHQ-9 Score PHQ-9: Total score 3 12/12/24 10:11 Depression Screening Interpretation: Negative Thrive Assessment: Date of Thrive Assessment Date Thrive assessed 12/12/24 12/12/24 10:00 Currently or been in a relationship where the following occur: No concerns reported Const General: healthy appearing, no acute distress, alert and awake Nutritional Appearance: well nourished Orientation/consciousness: oriented to person, oriented to place and oriented to time HENMT Ears: TM's normal bilaterally General nose exam: Normal nasal mucous membranes and turbinates present Eyes Conjunctivae: conjunctivae normal Sclerae: sclerae normal Pupils: Equal, round and reactive pupils present Neck Neck: Yes no lymphadenopathy and Yes no JVD Thyroid: Thyroid normal Carotids: no bruits Resp Effort & Inspection: normal respiratory effort and not tachypneic Auscultation: no crackles, no rales, no rhonchi and no wheezes Cardio Rate: regular rate Rhythm: regular rhythm Heart sounds: no murmurs and normal S1 and S2 GI Palpation (GI): Soft to palpation, nontender, no hepatomegaly and no splenomegaly Auscultation: normal bowel sounds Skin General skin exam: no rashes or lesions noted and dry skin Neuro General: oriented to person, oriented to place and oriented to time Cranial nerves: Yes Equal, round and reactive pupils present Speech: No Abnormal speech present Gait exam (Neuro): Normal gait present Motor exam (neuro): no tremor noted Extrem Right upper extremity: full ROM Left upper extremity: full ROM Right lower extremity: full ROM; no edema Left lower extremity: full ROM; no edema Psych Mental Status: mental status grossly normal Speech and movement: Normal speech and movement present Affect: normal affect Attitude: cooperative Thought process: Normal thought process present Coding Level of Care Code Est Pt Level 4 (48586) Diagnoses Primary hypertension I10 Hypertension type: primary hypertension Mixed hyperlipidemia E78.2 Hyperlipidemia type: mixed hyperlipidemia PAD (peripheral artery disease) I73.9 Additional Codes PHQ-9 - 06751 - PHQ-9 Billing: Yes ([id number]) EBONY-7 Assessment Billing - EBONY-7 Assessment Tool: EBONY-7 Assessment 60118 ([id number]) Assessment & Plan Assessment & Plan (1) HTN (hypertension): Code(s): I10 - Essential (primary) hypertension Category: Medical Qualifiers: Hypertension type: primary hypertension Qualified Code(s): I10 - Essential (primary) hypertension Plan: Patient's blood pressure acceptable today in office. Will continue his current dose of antihypertensive medication with goal blood pressure to remain below 140/90 (2) HLD (hyperlipidemia): Code(s): E78.5 - Hyperlipidemia, unspecified Category: Medical Qualifiers: Hyperlipidemia type: mixed hyperlipidemia Qualified Code(s): E78.2 - Mixed hyperlipidemia Plan: Patient continues on pravastatin 80 mg. Will continue follow the fasting lipid panel. Goal LDL to be below 100 (3) PAD (peripheral artery disease): Code(s): I73.9 - Peripheral vascular disease, unspecified Category: Medical Plan: For peripheral artery disease and cardiovascular risk reduction, the plan is to continue aggressive medical management. He will initiate a daily low-dose aspirin for secondary prevention. The patient was encouraged to continue walking as tolerated and to consider a stationary pedal computer installer to maintain circulation. A medication for vascular claudication was discussed, but due to bleeding risk and the patient's preference to avoid this, it will not be initiated. A repeat leg ultrasound is planned in about six months. Medications: Changed From spironolactone 25 mg PO DAILY I10 - Essential (primary) hypertension To spironolactone 25 mg PO DAILY 90 tabs 1RF 90 days I10 - Essential (primary) hypertension Refilled amlodipine 5 mg PO DAILY 90 tabs 1RF 90 days I10 - Essential (primary) hypertension lisinopril-hydrochlorothiazide 20-12.5 mg 1 tab PO DAILY 90 tabs 1RF 90 days I10 - Essential (primary) hypertension pravastatin 80 mg PO BEDTIME 90 tabs 1RF 90 days E78.2 - Mixed hyperlipidemia pantoprazole 40 mg PO DAILY 90 tabs 1RF 90 days K21.00 - Gastro-esophageal reflux disease with esophagitis, without bleeding
--- OUTSIDE RECORDS SUMMARY | 2024-12-12 11:19 | XMS_ITS | Clinical Summary ---
Author Organization [facility] ity Address [address] [place] [address] Care Team Providers Care Branch Employment Coordinator Name Role Phone Grzegorz Javier MD Primary Care Provider [phone] Medical History Medical History Date Comments Reflux [...] 01/08/2022 Hypertension/CHF/CAD Annual BMP Blood Test 01/23/2022 Depression Screening 02/10/2024 COVID-19 Vaccine (1 - 2023-2 5 season) 2024 Influenza Vaccine (#1) 2024 HIB Vaccines Aged [...] Documents on File Type Date Recorded Patient School Inspector Expl anation Health Care Decision (hx) 04/28/2018 AD CODY DIRECTIVE Health Care Decision (hx) 04/28/2018 AD CODY DIRECTIVE Care Teams Branch Employment Coordinator Relationship Specialty Start Date End Date Grzegorz Javier MD [address] [address] PCP - General 01/18/15
--- OUTSIDE RECORDS SUMMARY | 2024-12-12 11:19 | XMS_ITS | Patient Health Record ---
Author Organization [facility] [place] Address [address] [facility] [address] [place] [address] Care Team Providers Care Medical Records Library Professor Name Role Phone Claudy Titus Unavailable [phone] Migration, Provider Unavailable Unavailable Reason For Referral No Information Encounters Encounter Location Date Provider Diagnosis [facility] [place] [address] [address] 02/22/2024 Claudy Titus Plan Of Treatment No Information Insurance Providers Payer Name Payer Address Payer Phone Subscriber Number Group Number Insured Name Patient Relationship to Insured Coverage Start Date Coverage End Date [facility] [address] [place] [phone] [id number] MAXIMINO BRYSON Self - patient is the insured
== END 2024-12-12 10:58 | disposition home or self-care (01) ==
LOC: HO.HMCH 09:48
PROVIDERS: PCP Physician Assistant; Visit Provider Physician Assistant
DX: I10 Essential (primary) hypertension (principal); E78.2 Mixed hyperlipidemia; I73.9 Peripheral vascular disease, unspecified

== ENCOUNTER → 2024-12-12 09:47 | Outpatient (BNVA) | payer MEDICARE, SELFPAY | PROVIDERS: PCP Physician Assistant; Visit Provider Physician Assistant | DX: I10 Essential (primary) hypertension (principal); I73.9 Peripheral vascular disease, unspecified; E78.2 Mixed hyperlipidemia; K21.00 Gastro-esophageal reflux disease with esophagitis, without bleeding | CPT/HCPCS: 96127; 99212 ==